=== PATIENT | male | born 1995 | race Caucasian/White ===

== ENCOUNTER 2022-09-06 10:09 | Outpatient (CLI) | payer OTHER | END 2022-09-06 10:10 | disposition home or self-care (01) | LOC: BICRAD 10:09 | PROVIDERS: ATTEND Nurse Practitioner Family | DX: M54.50 Low back pain, unspecified (principal) | CPT/HCPCS: 72100 ==

== ENCOUNTER 2025-06-22 07:40 | Outpatient (CLI) | payer OTHER | END 2025-06-22 07:41 | disposition home or self-care (01) | LOC: SCSMRI 07:40 | DX: G35.D Multiple sclerosis, unspecified (principal); G93.9 Disorder of brain, unspecified; M89.9 Disorder of bone, unspecified | CPT/HCPCS: 70553; 72156; 72157; 76376 ==

== ENCOUNTER 2025-06-25 16:57 | Emergency (ER) | payer OTHER ==
[2025-06-25] MEDS ORDERED: methylPREDNISolone Sod Succ 1 GM in Sodium Chloride 0.9% 250 ML 250 ML IVPB SCH (20:00)
== END 2025-06-25 21:06 | disposition home or self-care (01) ==
LOC: ERS 16:57
DX: G35.D Multiple sclerosis, unspecified (principal)
CPT/HCPCS: 96374; J2930; J7050